=== PATIENT | female | born 1990 | race Caucasian/White ===

== ENCOUNTER 2019-12-13 06:02 | Inpatient (IN) ==
[2019-12-13] MEDS ORDERED: Metoclopramide 10 MG/2 ML VIAL IVP ONE (06:03)
[2019-12-13] MEDS ORDERED: Famotidine 20 MG/2 ML VIAL IVP ONE (06:03)
[2019-12-13] MEDS ORDERED: Ringers Solution, Lactated 1,000 ML IVC ONE (06:03)
[2019-12-13] MEDS ORDERED: CeFAZolin 2,000 MG/50 ML BAG IVPB ONE (06:03)
[2019-12-13 06:45] LABS: Eosinophils % 1.4 %; Hematocrit 33.7 % (35.3-44.9); Hemoglobin 11.5 g/dL (11.5-15.4); Lymphocytes % 23.9 %; Mean Corpuscular HGB Conc 34.1 g/dL (31.6-35.5); Mean Corpuscular Hemoglobin 31.2 pg (28.0-33.3); Mean Corpuscular Volume 91.3 fL (83.0-100.0); Mean Platelet Volume 9.5 fL (9.4-12.4); Monocytes % 5.1 %; Platelet Count 316 K/mcL (140-400); Red Blood Count 3.69 M/mcL (3.82-4.97); Red Cell Distribution Width 14.4 % (11.5-14.5); Segmented Neutrophils % 67.2 %; White Blood Count 20.7 K/mcL (4.3-11.1)
[2019-12-13 06:46] LABS: Basophils # 0.1 K/mcL (0.0-0.2); Basophils % 0.4 %; Eosinophils # 0.3 K/mcL (0.0-0.6); Monocytes # 1.1 K/mcL (0.0-1.3); Neutrophils # 13.9 K/mcL (1.6-8.9)
[2019-12-13] MEDS ORDERED: Ringers Solution, Lactated 1,000 ML ONE ×2 (07:29→07:49)
[2019-12-13] MEDS ORDERED: *HR* Labetalol 20 MG/4 ML SYRINGE IVP PRN (07:38)
[2019-12-13] MEDS ORDERED: *HR* HYDROmorphone PF 0.5 MG/0.5 ML SYRINGE IVP PRN (07:38)
[2019-12-13] MEDS ORDERED: *HR* Promethazine 25 MG/ML VIAL IVP PRN (07:38)
[2019-12-13 07:44] LABS: Reactive Lymphocytes Present (Not Present)
[2019-12-13 07:46] LABS: Platelet Estimate Normal (Normal)
[2019-12-13] MEDS ORDERED: EPHEDrine 50 MG/ML VIAL ONE (07:48)
[2019-12-13] MEDS ORDERED: *HR* Morphine Sulfate/PF 10 MG/10 ML AMPUL ONE (07:59)
[2019-12-13] MEDS ORDERED: *HR* FentaNYL (PF) 100 MCG/2 ML VIAL ONE (07:59)
[2019-12-13] MEDS ORDERED: Dexamethasone 4 MG/ML VIAL ONE (08:02)
[2019-12-13] MEDS ORDERED: Ondansetron 4 MG/2 ML VIAL ONE (08:02)
[2019-12-13] MEDS ORDERED: *HR* Phenylephrine 10 MG/ML VIAL ONE (08:02)
[2019-12-13] MEDS ORDERED: EPINEPHrine 1 MG/ML VIAL ONE (08:02)
[2019-12-13] MEDS ORDERED: *HR* Midazolam HCl 2 MG/2 ML VIAL ONE (08:08)
[2019-12-13] MEDS ORDERED: *HR* Oxytocin 10 UNIT/ML VIAL IM ONE (08:09)
[2019-12-13] MEDS ORDERED: Ketorolac 30 MG/ML VIAL ONE (08:09)
[2019-12-13 10:16] LABS: Amphetamine Screen,Urine Negative ng/mL (Cutoff=1000); Barbiturate Screen,Urine Negative ng/mL (Cutoff=200); Benzodiazepines Screen,Urine Negative ng/mL (Cutoff=200); Cannabinoid Screen,Urine Positive ng/mL (Cutoff = 50); Cocaine Screen,Urine Negative ng/mL (Cutoff= 300); Opiate Screen,Urine Negative ng/mL (Cutoff=300); Phencyclidine Screen,Urine Negative ng/mL (Cutoff=25)
[2019-12-13] MEDS ORDERED: Oxytocin 20 units/ LR 1000 mL 20 UNIT/1,000 ML BAG IVC ONE (11:42)
[2019-12-13] MEDS ORDERED: Ondansetron 4 MG/2 ML VIAL IVP PRN (13:00)
[2019-12-13] MEDS ORDERED: Simethicone 80 MG TAB.CHEW PO PRN (13:00)
[2019-12-13] MEDS ORDERED: Oxytocin 20 units/ LR 1000 mL 20 UNIT/1,000 ML BAG IVC SCH (13:00)
[2019-12-13] MEDS ORDERED: Ringers Solution, Lactated 1,000 ML IVC SCH (13:00)
[2019-12-13] MEDS ORDERED: Ibuprofen 600 MG TABLET PO PRN (13:00)
[2019-12-13] MEDS: Acetaminophen 325 MG TABLET PO SCH (15:40)
[2019-12-13] MEDS: *HR* OxyCODONE/APAP 5/325 TABLET PO PRN (20:23)
[2019-12-14] MEDS: Acetaminophen 325 MG TABLET PO SCH ×3 (00:08→05:38)
[2019-12-14] MEDS ORDERED: Lidocaine/EPI 1:100k 1% 20 ML VIAL INFILT PRN (07:59)
[2019-12-14] MEDS ORDERED: Etonogestrel 68 MG IMPLANT IL PRN (07:59)
[2019-12-14 08:04] VITALS: BP 115/66
[2019-12-14] MEDS ORDERED: Prenatal Vit/FA 1 EACH TABLET PO SCH (09:00)
[2019-12-14] MEDS: *HR* OxyCODONE/APAP 5/325 TABLET PO PRN (11:10)
== END 2019-12-14 12:54 | disposition home or self-care (01) | DRG 540 ==
LOC: 1NENULAB 06:02 → EDSTATUS 07:45 → 1NENUOBS 12:55